=== PATIENT | female | born 1955 | race Caucasian/White ===

== ENCOUNTER → 2017-04-30 | Outpatient (CLI) | payer BC ==
--- NOTE | 2017-04-30 10:04 | VAS ---
HISTORY: Right lower extremity pain Study: Right lower extremity venous Doppler Comparison: None TECHNIQUE: Multiple shaw scale and color flow Doppler images of the deep venous system were obtaine d of the right lower extremity. FINDINGS: The deep venous system of the right lower extremity was evaluated from the level of the common femor al vein through the popliteal vein. Normal color flow and augmentation can be observed. In additio n, normal compression is seen throughout the deep venous system. IMPRESSION: 1. Negative for DVT. Reported By:
== END ==
LOC: RAD 09:40
PROVIDERS: ATTEND Internal Medicine
DX: M79.604 Pain in right leg (principal); M79.89 Other specified soft tissue disorders
CPT/HCPCS: 93971